=== PATIENT | female | born 1980 | race Two or more races ===

== ENCOUNTER 2017-11-15 13:07 | Emergency (ER) | payer MEDICAID ==
[~2017-11-15] VITALS: Ht 157.5 cm; Wt 69.4 kg
[2017-11-15 15:38] VITALS: BP 117/77
== END 2017-11-15 15:38 | disposition home or self-care (01) ==
LOC: ED 13:07
DX: H81.10 Benign paroxysmal vertigo, unspecified ear (principal); J32.9 Chronic sinusitis, unspecified
CPT/HCPCS: 82962; J8597; Q0162

== ENCOUNTER 2018-02-18 12:53 | Emergency (ER) | payer SELFPAY ==
[~2018-02-18] VITALS: Ht 162.6 cm; Wt 72.6 kg
[2018-02-18 13:01] VITALS: Ht 162.6 cm; Wt 72.6 kg
[2018-02-18 13:54] LABS: CALCIUM 8.8 mg/dL (8.5-10.1); CARBON DIOXIDE 23.6 mmol/L (21-32); CHLORIDE SERUM 105 mmol/L (98-107); CREATININE SERUM 0.8 mg/dL (0.6-1.0); GFR1 > 60 mL/min; GLUCOSE SERUM 129 mg/dL (74-106); POTASSIUM SERUM 3.3 mmol/L (3.5-5.1); SODIUM SERUM 138 mmol/L (136-145)
[2018-02-18 14:06] LABS: BASOPHIL % 0.4 % (0-2); PLATELET COUNT 203 x10^3mcL (130-400); RED CELL DISTRIBUTION WIDTH 14.2 % (11.5-14.5)
[2018-02-18 15:25] VITALS: BP 122/76
== END 2018-02-18 15:25 | disposition home or self-care (01) ==
LOC: ED 12:53
PROVIDERS: Emergency Medicine
DX: F41.1 Generalized anxiety disorder (principal); E87.6 Hypokalemia; R55 Syncope and collapse
CPT/HCPCS: 36415